=== PATIENT | male | born 1995 | race Caucasian/White ===

== ENCOUNTER 2016-09-10 22:20 | Emergency (ER) | payer OTHER ==
[~2016-09-10] VITALS: Ht 177.8 cm; Wt 75.0 kg
[2016-09-10 22:24] VITALS: BP 134/76; PULSE 98; RESP 14; TEMP 97.8; O2SAT 98
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
[2016-09-10] MEDS ORDERED: NAPROXEN 500 MG TAB PO ONE (23:00)
[2016-09-10] MEDS ORDERED: BUPIVACAINE HCL PF 0.5% 10 ML VIAL INFIL ONE (23:00)
[2016-09-10] MEDS ORDERED: ACETAMINOPHEN/HYDROcodone 325 MG/5 MG TAB PO ONE (23:00)
[2016-09-10] MEDS ORDERED: ONDANSETRON ODT 4 MG TAB PO ONE (23:00)
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
[2016-09-10] MEDS ORDERED: AUGM875T PO (23:39)
[2016-09-10] MEDS ORDERED: NAPR500 PO (23:39)
[2016-09-10] MEDS ORDERED: HYDR-3533 PO (23:39)
[2016-09-10] MEDS ORDERED: ZOFR4TAB3 SL (23:44)
== END 2016-09-11 00:54 | disposition home or self-care (01) ==
LOC: NETRI 22:20
DX: S01.21XA Laceration without foreign body of nose, initial encounter (principal); S02.2XXA Fracture of nasal bones, initial encounter for closed fracture; Y04.0XXA Assault by unarmed brawl or fight, initial encounter; Y93.9 Activity, unspecified; Y92.9 Unspecified place or not applicable; Z72.0 Tobacco use
CPT/HCPCS: 12011; 70486

== ENCOUNTER 2016-09-11 12:51 | Emergency (ER) | payer SELFPAY ==
[~2016-09-11 12:51] MED LIST: AUGM875T PO; HYDR-3533 PO; NAPR500 PO; ZOFR4TAB3 SL
[2016-09-11 12:52] VITALS: BP 116/67; PULSE 75; RESP 16; TEMP 97.5; O2SAT 97
--- NOTE | 2016-09-11 13:25 | PD ---
HPI Chief Complaint: Medication Refill Request Time Seen by Provider: 13:18 Travel History International Travel<30 days: No Contact w/Intl Traveler<30days: No Traveled to known affect area: No History of Present Illness HPI 21-year-old male presents to the emergency department requesting more pain medications for a broken nose. He was seen last night and evaluated and was given prescriptions for Lortab and naproxen. He is already completed the prescription of Lortabs. He said he was only given 7 pills and he took 3 of them first thing last night after filling the prescription. The prescription was for him to take one pill every 8 hours. He reports one pill didn't even take the edge off so he took more. He says he needs something stronger. He reports taking the naproxen with no relief of pain. He denies fever, chills, nausea, vomiting. Has no other medical complaints. No other modifying factors or associated signs and symptoms. History Social History Alcohol Use: No Tobacco Use: Yes (4-5 CIGARETTES A DAY) Allergies-Medications (Allergen,Severity, Reaction): Coded Allergies: No Known Allergies (Verified , 09/10/16) Reported Meds & Prescriptions Reported Meds & Active Scripts Active Zofran Odt (Ondansetron Odt) 4 Mg Tab 4 Mg SL Q6HR PRN Augmentin (Amoxicillin-Clavulanate) 875-125 mg Tab 875 Mg PO BID 10 Days not for use in CrCl <30 ml/min. Naprosyn (Naproxen) 500 Mg Tab 500 Mg PO Q12HR PRN Lortab (Hydrocodone-Acetaminophen) 5-325 Mg Tab 1 Tab PO Q8HR PRN Review of Systems Except as stated in HPI: all other systems reviewed are Neg Physical Exam Narrative GENERAL: Well-nourished, well-developed male patient, in no acute distress SKIN: Warm and dry. Facial swelling around the nose and bilateral lower eyes. Laceration to nasal bridge appears well approximated with sutures intact and scabbed over; without drainage. HEAD: Atraumatic. Normocephalic. EYES: Pupils equal and round. No scleral icterus. No injection or drainage. ENT: Mucosa pink and moist. Airway patent. NECK: Trachea midline. CARDIOVASCULAR: Regular rate. RESPIRATORY: No accessory muscle use. GASTROINTESTINAL: Flat. MUSCULOSKELETAL: No obvious deformities. No clubbing. No cyanosis. No edema. NEUROLOGICAL: Awake and alert. Oriented 3. No obvious cranial nerve deficits. Motor grossly within normal limits. Normal speech. PSYCHIATRIC: Appropriate mood and affect; insight and judgment normal. Data Data Last Documented VS Vital Signs Date Time Temp Pulse Resp B/P Pulse Ox O2 Delivery O2 Flow Rate FiO2 09/11/16 13:07 09/11/16 12:52 97.5 75 16 97 Room Air MDM Medical Screen Exam Complete: Yes Emergency Medical Condition: No Differential Diagnosis Narcotic seeking, pain management, medication refill Narrative Course 21-year-old male requesting pain medications. He was seen here last night and has a nasal bone fracture. He was given a prescription for Lortab 5 mg #7. Patient reports he took 3 of the pills upon filling the prescription. He is requesting a stronger pain medication. Patient has prescription for naproxen. He has no other medical complaints. Vital signs are stable and the patient is stable for outpatient follow-up and treatment. The patient has no urgent or emergent medical complaints. There is no emergent or urgent medical need at this time. I instructed the patient to follow up with their primary care provider. A medical screening exam was performed: At the time of evaluation the presenting medical condition was determined not to be of an emergent nature. The patient was given the option of receiving additional care, but declined. Patient was given options for additional community resources from which to obtain care. The Patient Has Been advised to seek medical attention for their presenting complaint. The patient has been advised to return to the ER at any time if an emergent condition develops. Primary Impression: Encounter for medical screening examination Condition: Stable Brii Ozuna Sep 11, 2016 13:25
== END 2016-09-11 13:50 | disposition left against medical advice (07) ==
LOC: NEPB 12:51
DX: S02.2XXD Fracture of nasal bones, subsequent encounter for fracture with routine healing (principal); Z76.0 Encounter for issue of repeat prescription; X58.XXXD Exposure to other specified factors, subsequent encounter
CPT/HCPCS: 99281